=== PATIENT | female | born 1980 | race Caucasian/White ===

== ENCOUNTER → 2017-06-11 | Day surgery (SDC) | payer BC ==
[~2017-06-11] VITALS: Ht 165.1 cm; Wt 100.0 kg
[~2017-06-11] MED LIST: AMPICILLIN/SULBAC 3 GM/NS 100 ML IV SCH; CHLORHEXIDINE GLUCONATE 2 % 1 PACK (2 CLOTHS) TOPICAL PRN; FAMOTIDINE 20 MG/2 ML VIAL ONE; INSULIN HUMAN REGULAR 1,000 UNITS/10 ML VIAL SQ PRN; LACTATED RINGER'S 1000 ML IV PRN; LIDOCAINE 1%/EPINEPHrine 1:100,000 SOLN 20 ML VIAL ONE; METOPROLOL TARTRATE 25 MG TAB PO PRN; MIDAZOLAM HCL 2 MG/2 ML VIAL ONE; MORPHINE SULFATE 8 MG/ML INJ ONE; NO ITAB PO; OMEP40CA2 PO; OXYMETAZOLINE HCL 0.05% 15 ML NASAL SPRAY ONE; POVIDONE IODINE 5% (ANTISEPSIS KIT) 4 APPLICATIONS EACH NARE PRN; RANI150T PO; SODIUM CHLORID 0.9% 500 ML IV PRN
[2017-06-11 12:35] VITALS: BP 122/80; PULSE 80; RESP 16; TEMP 98.7; O2SAT 98
--- NOTE | 2017-06-13 09:09 | MP ---
cc: SHERI KIRKLAND M.D. DATE OF SURGERY: June 11, [address] Sheri Kirkland. PREOPERATIVE DIAGNOSIS 1. Nasal airway obstruction. 2. Nasal septal deviation. 3. Hypertrophy inferior turbinates. POSTOPERATIVE DIAGNOSIS 1. Nasal airway obstruction. 2. Nasal septal deviation. 3. Hypertrophy inferior turbinates. OPERATION PERFORMED 1. Open repair nasal septal fracture. 2. Bilateral submucosal resection of inferior turbinates. INDICATIONS Documented in the history and physical. DESCRIPTION OF OPERATION The patient was taken to OR #2 and placed in the supine position. Following induction of general anesthesia and intubation the nose was packed bilaterally with cotton pledgets saturated in 0.05% Oxymetazoline. Nasal septum and inferior turbinates were injected with a total of 8 mL of 1% Xylocaine with epinephrine 1:100,000. She was then prepped and draped for surgery. The packing was removed and a gilma-transfixion incision was made in the left nasal vestibule. Through this incision the septal mucosa was elevated from the underlying cartilage as far as the junction of the bony cartilaginous septum. This exposed the quadrangular cartilage which showed evidence of old septal fracture with displacement from the maxillary crest and numerous points of bone and spurs obstructing the airway bilaterally. A cumulative area of 2 x 2 cm was removed preserving 1.5 cm dorsal and caudal struts. On the caudal strut the inferior most extent was removed approximately 2 mm in height to allow for return of the cartilaginous strut to the midline. Mucosa was then elevated from the bony septum and it was removed with Conrad Humphries forceps. The maxillary crest was removed with a 6-mm [place] chisel preserving the anterior nasal spine. The incision was then closed with a running suture of 4-0 Chromic and the mucosal layers of septum were approximated to each other with a quilting stitch of 4-0 plain gut. The inferior turbinates were then fractured out medially and stab incisions made along the inferior surfaces. Through these incisions the submucosal soft tissue was reduced using a curette and preserving the conchal bone. The Incisions were then cauterized using the suction Bovie at 35 [address]azar. The remnants of the inferior turbinates were then re-lateralized to the lateral nasal wall. The nose was packed with 5.5 cm rapid rhino packs, each inflated with 5 mL of air and the procedure was terminated. The patient was reversed from anesthesia and taken to recovery in good condition. No complications. Blood loss was 80 mL. MD NATHANIEL Hermosillo/TLJuan /7:48 AM /9:05 AM
== END | disposition home or self-care (01) ==
LOC: PHSDC 07:00
PROVIDERS: ATTEND Otolaryngology
DX: J34.2 Deviated nasal septum (principal); J34.3 Hypertrophy of nasal turbinates
CPT/HCPCS: 00160; 30140; 30520; J0295; J2250; J2270; J7120